=== PATIENT | male | born 1990 | race African-American/Black ===

== ENCOUNTER 2017-07-15 12:29 | Inpatient (IN) | payer MEDICAID ==
[~2017-07-15] VITALS: Ht 188 cm; Wt 84.4 kg
[2017-07-15 16:39] VITALS: BP 136/87
[2017-07-16 06:22] VITALS: BP 113/75
[2017-07-16 08:33] VITALS: BP 110/67
[2017-07-16] MEDS ORDERED: CloNIDine HCL 0.1 MG TABLET PO PRN (10:15)
[2017-07-16] MEDS ORDERED: MAGNESIUM HYDROXIDE SUSPENSION 30 ML UDCUP PO PRN (10:15)
[2017-07-16] MEDS ORDERED: MAG HYDROX/AL HYDROX/SIMETH ES 30 ML SUSPENSION UDCUP PO PRN (10:15)
[2017-07-16] MEDS ORDERED: LOPERAMIDE HCL 2 MG CAPSULE PO PRN (10:15)
[2017-07-16] MEDS: VENLAFAXINE HCL 37.5 MG ER CAPSULE PO SCH (10:15)
[2017-07-16] MEDS ORDERED: ALBUTEROL SULFATE HFA 90 MCG/PUFF 8 GM INHALER IH PRN (10:15)
[2017-07-16] MEDS ORDERED: BACITRACIN 28.4 GM OINTMENT TP PRN (10:15)
[2017-07-16] MEDS ORDERED: ACETAMINOPHEN 325 MG TABLET PO PRN (10:15)
[2017-07-16] MEDS ORDERED: BENZOCAINE/MENTHOL LOZENGE MM PRN (10:15)
[2017-07-16] MEDS ORDERED: PETROLATUM,WHITE 71 GM JELLY TP PRN (10:15)
[2017-07-16] MEDS ORDERED: IBUPROFEN 600 MG TABLET PO PRN (10:15)
[2017-07-16] MEDS ORDERED: ONDANSETRON HCL 4 MG TABLET PO PRN (10:15)
[2017-07-16] MEDS: NICOTINE 21 MG/24 HOUR PATCH TD SCH (10:43)
[2017-07-16] MEDS: ARIPiprazole 15 MG TABLET PO SCH (10:43)
[2017-07-16 16:25] VITALS: BP 119/67
[2017-07-16] MEDS: LORazepam 2 MG TABLET PO PRN (16:58)
[2017-07-17 06:06] VITALS: BP 118/78
[2017-07-17 08:19] VITALS: BP 110/62
[2017-07-17] MEDS: VENLAFAXINE HCL 37.5 MG ER CAPSULE PO SCH (08:29)
[2017-07-17] MEDS: ARIPiprazole 15 MG TABLET PO SCH (08:29)
[2017-07-17] MEDS: NICOTINE 21 MG/24 HOUR PATCH TD SCH (08:30)
[2017-07-17 16:37] VITALS: BP 110/61
[2017-07-17] MEDS: LORazepam 2 MG TABLET PO PRN (16:46)
[2017-07-17] MEDS: ZOLPIDEM TARTRATE 10 MG TABLET PO PRN (21:09)
[2017-07-18 06:35] VITALS: BP 115/67
[2017-07-18 08:16] VITALS: BP 116/65
[2017-07-18] MEDS: ARIPiprazole 15 MG TABLET PO SCH (08:32)
[2017-07-18] MEDS: VENLAFAXINE HCL 37.5 MG ER CAPSULE PO SCH (08:32)
[2017-07-18] MEDS: NICOTINE 21 MG/24 HOUR PATCH TD SCH (08:32)
[2017-07-18 16:30] VITALS: BP 105/66
[2017-07-18] MEDS: HALOPERIDOL 5 MG TABLET PO PRN (16:48)
[2017-07-18] MEDS: LORazepam 2 MG TABLET PO PRN (16:48)
[2017-07-18] MEDS: ZOLPIDEM TARTRATE 10 MG TABLET PO PRN (20:21)
[2017-07-19 06:46] VITALS: BP 110/60
[2017-07-19 08:14] VITALS: BP 115/60
[2017-07-19] MEDS: NICOTINE 21 MG/24 HOUR PATCH TD SCH (09:00)
[2017-07-19] MEDS: VENLAFAXINE HCL 37.5 MG ER CAPSULE PO SCH (09:08)
[2017-07-19] MEDS: ARIPiprazole 15 MG TABLET PO SCH (09:08)
[2017-07-19 16:30] VITALS: BP 109/65
[2017-07-19] MEDS: HALOPERIDOL 5 MG TABLET PO PRN (17:31)
[2017-07-20 06:12] VITALS: BP 108/69
[2017-07-20 08:04] VITALS: BP 102/67
[2017-07-20] MEDS: ARIPiprazole 15 MG TABLET PO SCH (08:29)
[2017-07-20] MEDS: VENLAFAXINE HCL 37.5 MG ER CAPSULE PO SCH (08:29)
[2017-07-20] MEDS: NICOTINE 21 MG/24 HOUR PATCH TD SCH (08:30)
[2017-07-20] MEDS ORDERED: ARIP15TA2 PO (09:09)
[2017-07-20] MEDS ORDERED: VENL-66 PO (09:10)
== END 2017-07-20 13:20 | disposition home or self-care (01) | DRG 754 ==
LOC: B3A 15:03 → B2S 07-19 14:14
PROVIDERS: ATTEND Psychiatry & Neurology Child & Adolescent Psychiatry
DX: F32.9 Major depressive disorder, single episode, unspecified (principal); R45.851 Suicidal ideations; F15.20 Other stimulant dependence, uncomplicated; F12.90 Cannabis use, unspecified, uncomplicated; F17.200 Nicotine dependence, unspecified, uncomplicated; F41.9 Anxiety disorder, unspecified; G47.00 Insomnia, unspecified
CPT/HCPCS: 87081